=== PATIENT | female | born 1995 ===

== ENCOUNTER 2019-11-03 18:23 | Emergency (ER) | payer SELFPAY | END 2019-11-03 19:23 | disposition home or self-care (01) | LOC: ERS 18:23 | DX: K04.7 Periapical abscess without sinus (principal); G43.909 Migraine, unspecified, not intractable, without status migrainosus; F41.9 Anxiety disorder, unspecified; F32.9 Major depressive disorder, single episode, unspecified; F17.210 Nicotine dependence, cigarettes, uncomplicated | CPT/HCPCS: 99282 ==